=== PATIENT | female | born 1960 | race Caucasian/White ===

== ENCOUNTER → 2018-04-15 | Outpatient (CLI) | payer OTHER ==
[~2018-04-15] MED LIST: AMBIEN 10 MG TA10 MG PO; ARICEPT 5 MG TAB5 MG PO; ASPIR 8181 MG PO; AZITHROMYCIN 2250 MG PO; BUTALB-APAP-CA1 EACH PO; CARISOPRODOL 3350 MG PO; DESYREL50 MG; FLEXERIL PO; ISOSORBIDE DN 110 M1 PO; KEFLEX500 MG PO; NAPROSYN500 MG PO; NORCO 5-325 TA1 EACH PO; OXYCONTIN20 M1 PO; OXYCONTIN80 M1 PO; PERCOCET 10-321 EACH PO; PERCOCET 5-3251 EACH PO; PREDNISONE 20 M20 M1 PO; SYMBICORT160 MCG/4. INH; TRAZODONE 150150 M1 PO; TRAZODONE HCL100 MG PO; VALIUM5 MG PO; VENTOLIN HFA INH8 GM IH; XANAX1 MG PO; ZOCOR 20 MG TAB20 M1 PO; [UNRECOGNIZED DRUG - OTHER] PO; [UNRECOGNIZED DRUG - REMARK]
== END ==
LOC: M.RAD 10:30
DX: J98.11 Atelectasis (principal)

== ENCOUNTER → 2018-06-07 | Outpatient (CLI) | payer OTHER | LOC: M.RAD 05-04 15:27 | DX: Z12.31 Encounter for screening mammogram for malignant neoplasm of breast (principal); M81.0 Age-related osteoporosis without current pathological fracture; E78.5 Hyperlipidemia, unspecified; Z78.0 Asymptomatic menopausal state; Z87.891 Personal history of nicotine dependence ==

== ENCOUNTER 2018-06-10 10:35 | Emergency (ER) | payer OTHER ==
[~2018-06-10] VITALS: Ht 157.5 cm; Wt 46.7 kg
[2018-06-10] MEDS ORDERED: CARISOPRODOL 3350 MG PO (12:34)
[2018-06-10 12:59] VITALS: BP 133/84
== END 2018-06-10 13:00 | disposition home or self-care (01) ==
LOC: M.ERS 10:35
DX: S46.811A Strain of other muscles, fascia and tendons at shoulder and upper arm level, right arm, initial encounter (principal); J45.909 Unspecified asthma, uncomplicated; F41.9 Anxiety disorder, unspecified; G89.29 Other chronic pain; E78.00 Pure hypercholesterolemia, unspecified; I25.10 Atherosclerotic heart disease of native coronary artery without angina pectoris; Z96.652 Presence of left artificial knee joint; Z89.612 Acquired absence of left leg above knee; W01.0XXA Fall on same level from slipping, tripping and stumbling without subsequent striking against object, initial encounter; Y93.89 Activity, other specified; Y92.89 Other specified places as the place of occurrence of the external cause; Y99.8 Other external cause status

== ENCOUNTER → 2021-03-25 | Outpatient (CLI) | payer OTHER, MEDICAID ==
[2021-03-25] VITALS (11 sets, daily range): BP systolic 107–126; BP diastolic 60–78
[~2021-03-25] VITALS: Ht 157.5 cm; Wt 47.2 kg
[~2021-03-25] MED LIST changes: +ADVIL LIQUI-GE200 MG PO; +CELEXA 10 MG TA10 M1 PO; +DIAZEPAM 10 MG10 M2 PO; +PERCOCET 10-321 EAC1 PO
[2021-03-25 11:40] LABS: HEMATOCRIT 43.1 % (37.0-47.0); HEMOGLOBIN 14.5 gm/dL (12.0-15.0); MCH 32.4 pg (26.0-34.0); MCHC 33.7 g/dL (28.0-37.0); MCV 96.3 fL (80.0-100.0); MPV 8.3 fl. (7.2-11.1); RBC 4.47 mil/uL (4.20-5.00); RDW-CV 15.1 % (10.5-14.5); WBC 8.3 thou/uL (4.0-11.0)
[2021-03-25 11:53] LABS: APTT 25.6 Seconds (25.0-31.3); PROTIME 10.6 Seconds (9.20-11.50)
--- NOTE | 2021-03-28 16:06 | PATH ---
[address] [address] PATHOLOGY RPT PROCEDURE Name: CASSI PENA Room: KIARA Juarez#: [id number] Admission: 03/25/21 Date of : 56 Discharge: Report #: [id number] Path Case #: [id number] [facility] Accession Number: [id number] . 01 Material submitted: . liver - LIVER BIOPSY . 01 Clinical history: . US/LIVER BIOPSY/HEPATITIS HEP C,FIBROSIS . 02 Diagnosis: Liver, needle biopsy: - Chronic hepatitis with minimal interface activity, minimal to mild spotty lobular necroinflammatory activity and no evidence of fibrosis, (grade 1-2/4, stage 0/4), clinically chronic HCV. - Focal mid zonal sinusoidal dilatation. (LAVERNE:babs; 03/26/2021) [facility]BR 03/27/2021 1302 Local . 02 Electronically signed: . Christopher Holloway MD, Pathologist NPI- [id number] . 01 Gross description: . The specimen is received in formalin, labeled "SupaCassi, liver tissue" received as 4 soft ortiz tissue cores measuring up to 1.5 x less than 0.1cm entirely submitted in A1-A2.([facility]; 03/25/2021) GABRIELLA/GABRIELLA 03/26/2021 1718 Local . 02 Microscopic: . Several needle cores of liver tissue are available for review. The portal tracts are mildly expanded. Some are devoid of inflammation, and others display a mild, primarily lymphocytic inflammatory infiltrate. A rare plasma cell is also noted. Interface activity is minimal. Interlobular bile ducts are seen within the portal tracts examined. They demonstrate minimal epithelial injury. Lymphoid aggregates are not appreciated within the portal tracts. Ductular reaction is also not seen. . The hepatic parenchyma shows minimal to mild spotty lobular necroinflammatory activity. There is focal mid zonal sinusoidal dilatation, but accompanying sinusoidal congestion is not evident. . The trichrome stain fails to identify significant excess fibrous connective tissue. The reticulin stain shows an overall intact hepatic reticulin framework pattern. Focal hepatic plates are irregularly thickened, compatible with localized regeneration. The PAS stain shows hepatocellular cytoplasmic glycogen. The PAS-D stain shows scattered [facility] [address] [place] [address] PATHOLOGY RPT PROCEDURE Name: CASSI PENA Room: [facility]#: [id number] Admission: 03/25/21 Date of : 56 Discharge: Report #: [id number] Path Case #: [id number] ceroid-laden Kupffer cells. PAS positive intracytoplasmic globules are not identified within hepatocyte cytoplasm. The iron stain is negative. . Special stains (A1 and A2) - PAS with and without diastase, iron, trichrome and reticulin. . 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 02 Pathologist provided ICD-10: K73.9 . 02 CPT . 400322, 080775, 000765, 607344, [id number], [id number] Specimen Comment: A courtesy copy of this report has been sent to [phone], [phone] Specimen Comment: [id number] Specimen Comment: Report sent to / DR NICOLE Specimen Comment: A duplicate report has been generated due to demographic updates. Performed at: 01 [facility] [address] [id number] MD Peter Roque MD Phone: [phone] Performed at: 02 [facility] [address] [id number] MD Roderick Ott MD Phone: [phone]
== END | disposition home or self-care (01) ==
LOC: M.ULTRA 11:00
PROVIDERS: Radiology Diagnostic Radiology; ATTEND Internal Medicine Gastroenterology
DX: K73.9 Chronic hepatitis, unspecified (principal); K76.89 Other specified diseases of liver; I25.10 Atherosclerotic heart disease of native coronary artery without angina pectoris; E78.00 Pure hypercholesterolemia, unspecified; J45.909 Unspecified asthma, uncomplicated; F41.9 Anxiety disorder, unspecified; Z98.890 Other specified postprocedural states; Z79.899 Other long term (current) drug therapy; Z96.659 Presence of unspecified artificial knee joint; Z87.891 Personal history of nicotine dependence; Z86.73 Personal history of transient ischemic attack (TIA), and cerebral infarction without residual deficits

== ENCOUNTER 2021-06-20 14:31 | Emergency (ER) | payer OTHER, MEDICAID ==
[~2021-06-20] VITALS: Ht 157.5 cm; Wt 48.1 kg
[2021-06-20] MEDS ORDERED: CRESTOR10 MG PO (14:44)
[2021-06-20 16:57] VITALS: BP 145/85
== END 2021-06-20 16:57 | disposition left against medical advice (07) ==
LOC: M.ERS 14:31
DX: Z53.21 Procedure and treatment not carried out due to patient leaving prior to being seen by health care provider (principal); Z20.822 Contact with and (suspected) exposure to COVID-19

== ENCOUNTER → 2021-11-18 | Outpatient (CLI) | payer OTHER, MEDICAID ==
[~2021-11-18] MED LIST changes: +CRESTOR10 MG PO
== END ==
LOC: M.RAD 09:42
PROVIDERS: ATTEND Family Medicine
DX: Z12.31 Encounter for screening mammogram for malignant neoplasm of breast (principal)